=== PATIENT | female | born 1980 | race American Indian/Alaskan Native ===

== ENCOUNTER 2017-12-18 04:02 | Emergency (ER) | payer SELFPAY ==
[2017-12-18 04:30] VITALS: BP 109/70
[2017-12-18] MEDS ORDERED: TYLENOL/CODEINE PO ONE (05:30)
--- NOTE | 2017-12-18 05:56 | XRay Report ---
FINAL REPORT EXAM: XR NECK SOFT TISSUE HISTORY: pain/difficulty swallow TECHNIQUE: AP and lateral views of the soft tissues of the neck were obtained. FINDINGS: The epiglottis and subglottic airway appear normal. The nasopharynx and hypopharynx appear normal. The prevertebral soft tissues appear normal. The cervical spine is unremarkable. There is no evidence of foreign body. IMPRESSION: Within normal limits.
--- NOTE | 2017-12-18 06:02 | Emergency Department Report ---
HPI - General Chief Complaint: Earache Time Seen by Provider: 12/18/17 05:08 - HPI HPI: Patient is a 37-year-old female who presents to the ED complaining of throat pain 2 days. Patient states she is having pain with swallowing. Patient also complains of bilateral earache. Patient denies fevers chills/nausea or vomiting , chest pain or shortness of breath ED Past Medical Hx - Past Medical History Hx Hypertension: No Hx Sickle Cell Disease: Yes (Sickle Cell Trait only) Hx Asthma: Yes ( CHILD ONLY) - Surgical History Hx Breast Surgery: Yes (EXC RT AXILLARY MASS 2014) Additional Surgical History: abscess removed. - Social History Smoking Status: Never Smoker - Medications Home Medications: Home Medications Medication Instructions Recorded Confirmed Last Taken Type Ibuprofen [Motrin] 800 mg PO Q8HR PRN #30 tablet 12/18/17 Unknown Rx Sulfamethoxazole/Trimethoprim 1 each PO BID #20 tablet 12/18/17 Unknown Rx [Bactrim DS TAB] ED Review of Systems ROS: Stated complaint: THROAT SWOLLEN,EAR PAIN Other details as noted in HPI Constitutional: denies: chills, fever Eyes: denies: eye pain, eye discharge, vision change ENT: throat pain. denies: ear pain, dental pain, hearing loss, congestion Respiratory: denies: cough, shortness of breath, wheezing Cardiovascular: denies: chest pain, palpitations Endocrine: no symptoms reported Gastrointestinal: denies: abdominal pain, nausea, vomiting, diarrhea Genitourinary: denies: urgency, dysuria, discharge Musculoskeletal: denies: back pain, joint swelling, arthralgia Skin: denies: rash, lesions Neurological: denies: headache, weakness, paresthesias Psychiatric: denies: anxiety, depression Hematological/Lymphatic: denies: easy bleeding, easy bruising Physical Exam - Physical Exam Vital Signs: Vital Signs 12/18/17 04:26 Temperature 99.4 F Pulse Rate 80 Respiratory 20 Rate Blood Pressure 109/70 O2 Sat by Pulse 99 Oximetry Physical Exam: GENERAL: Alert and oriented x3, no apparent distress, Normal Gait, atraumatic. HEAD: Head is normocephalic and a-traumatic. EARS: symetrical, atraumatic, non tender, ear canal clear and moderate cerumen, tympanic membrance non inflamed. gross auditory nml bilaterally. MOUTH:Mouth is well hydrated and without lesions. Tonsils nonerythematous or swollen, Uvula midline, Tongue not elevated. Mucous membranes are moist. Posterior pharynx clear, no exudate or lesions. Patent airways. NECK: Supple. Non edematous, No carotid bruits. Cervical lymphadenopathy no thyromegaly. Submental lymphadenopathy, No C-spine tenderness LUNGS: Symetrical with respiration, No wheezing, no rales or crackles, CTAB. HEART: S1, S2 present, regular rate and rhythm without murmur, no rubs, no gallops. Non tender to palpation SKIN: Warm and dry, No lesions, No ulceration or induration present. ED Course Vital Signs 12/18/17 04:26 Temperature 99.4 F Pulse Rate 80 Respiratory 20 Rate Blood Pressure 109/70 O2 Sat by Pulse 99 Oximetry ED Medical Decision Making - Radiology Data Radiology results: report reviewed, image reviewed FINAL REPORT EXAM: XR NECK SOFT TISSUE HISTORY: pain/difficulty swallow TECHNIQUE: AP and lateral views of the soft tissues of the neck were obtained. FINDINGS: The epiglottis and subglottic airway appear normal. The nasopharynx and hypopharynx appear normal. The prevertebral soft tissues appear normal. The cervical spine is unremarkable. There is no evidence of foreign body. IMPRESSION: Within normal limits. Transcribed By: RB Dictated By: NATHALIA ROYAL MD Electronically Authenticated By: NATHALIA ROYAL MD Signed Date/Time: 12/18/17 0550 - Medical Decision Making 37-year-old female presents with cervical lymphadenitis ED course: Patient received pain medication in ED, soft neck x-rays were collected X-ray shows no acute findings see reported above I discussed this findings with the patient. I discussed the patient to apply heat to 3 times a day I discussed antibiotic therapy and pain medication. I discussed the patient to return to [facility] symptoms worsen I discussed the follow up with her primary care physic I discussed [id number] Robitussin as needed for coughing Vital signs are normal patient is in no acute or respiratory distress. Critical care attestation.: If time is entered above; I have spent that time in minutes in the direct care of this critically ill patient, excluding procedure time. ED Disposition Clinical Impression: Lymphadenitis Pharyngitis Qualifiers: Pharyngitis/tonsillitis etiology: unspecified etiology Qualified Code(s): J02.9 - Acute pharyngitis, unspecified Disposition: DC- TO HOME OR SELFCARE Is pt being admited?: No Does the pt Need Aspirin: No Condition: Stable Instructions: Pharyngitis (ED), Lymphadenopathy (ED), Adenitis (ED), Heat Pack Application (ED) Additional Instructions: Make sure to follow up with the primary care physician as discussed. Take all your medications as you've been prescribed. If you have any worsening symptoms or develop new symptoms please return to ED immediately. Prescriptions: Ibuprofen [Motrin] 800 mg PO Q8HR PRN #30 tablet PRN Reason: Pain Sulfamethoxazole/Trimethoprim [Bactrim DS TAB] 1 each PO BID #20 tablet Referrals: PRIMARY CAREMD [Primary Care Provider] - 3-5 Days NEGRITO FALCON MD [Referring] - 3-5 Days [facility] [Provider Group] - 3-5 Days Forms: Work/School Release Form(ED) Time of Disposition: 06:21
== END 2017-12-18 06:46 | disposition home or self-care (01) ==
LOC: ED 04:02
DX: J02.9 Acute pharyngitis, unspecified (principal); I88.9 Nonspecific lymphadenitis, unspecified; J45.909 Unspecified asthma, uncomplicated
CPT/HCPCS: 70360; 87116; 87430; 99283